=== PATIENT | male | born 1995 | race African-American/Black ===

== ENCOUNTER 2019-04-30 07:27 | Emergency (ER) | payer SELFPAY ==
[2019-04-30] MEDS: IBUPROFEN 800 MG TAB PO (08:04)
[2019-04-30] MEDS: METHOCARBAMOL 750 MG TAB PO (08:11)
== END 2019-04-30 11:27 | disposition home or self-care (01) ==
LOC: FTE 11:27
DX: M54.2 Cervicalgia (principal); M54.6 Pain in thoracic spine; M25.531 Pain in right wrist
CPT/HCPCS: 72040; 72072; 99283-25